=== PATIENT | female | born 1935 | race Caucasian/White ===

== ENCOUNTER 2017-04-11 22:03 | Inpatient (IN) | payer OTHER ==
[~2017-04-11] VITALS: Ht 149.9 cm; Wt 92.9 kg
--- NOTE | ~2017-04-11 | S ---
[facility] [place] [address] SURGICAL PATH RPT PROCEDURE Name: JESS LOYD Room #: 315-P DIS IN M.R.#: [id number] Admission: 04/11/17 Date of : 37 Discharge: 04/17/17 Report #: [id number] Path Case #: [id number] PATHOLOGY REPORT COLLECTION DATE: 04/16/2017 RECEIVED DATE: 04/16/2017 SUBMITTING PHYS: Dr. Nasreen Aguillon OTHER PHYS: Dr. Mitch Carson SPECIMEN(S) RECEIVED: A.Random bx of ascending colon B.Polyp at proximal transverse C.Colitis at distal transverse/distal transverse at spleenic flexure D.Bx at proximal sigmoid E.Bx at middle sigmoid * * * * * * * * * * * * FINAL DIAGNOSIS: A. Large intestine mucosa, random biopsy of ascending colon, endoscopic biopsy: - Melanosis coli. - Negative for active colitis, ischemia, dysplasia or malignancy. B. Polyp, at proximal transverse, endoscopic biopsy: - Tubular adenoma. - Negative for high grade dysplasia. C. Large intestine mucosa, colitis at distal transverse/distal transverse at spleenic flexure, endoscopic biopsy: - Mild active colitis, see comment. - Negative for ischemia, dysplasia or malignancy. D. Large intestine mucosa, at proximal sigmoid, endoscopic biopsy: - Mild active colitis, see comment. - Negative for ischemia, dysplasia or malignancy. E. Large intestine mucosa, at middle sigmoid, endoscopic biopsy: - Mild active colitis, see comment. - Negative for ischemia, dysplasia or malignancy. COMMENT: C, D and E: Sections of colon biopsy tissues show crypts at regular intervals; however associated with a mild increase in lamina propria cellularity, an occasional crypt abscess as well as a rare focus of crytptis. There are no granulomas, viral inclusions, parasites or crypt architectural abnormalities. The collagen layer underneath the epithelium is not thickened. There is no increase in intraepithelial lymphocytes as well. There is no evidence of dysplasia. Findings may be suggestive of active colitis due to a self-limited [facility] [address] [place] [address] SURGICAL PATH RPT PROCEDURE Name: JESS LOYD Room #: 315-P DIS IN M.R.#: [id number] Admission: 04/11/17 Date of : 37 Discharge: 04/17/17 Report #: [id number] Path Case #: [id number] episode of colitis, infectious- type colitis, early inflammatory bowel disease, medication induced colitis or diverticulitis. Please correlate clinically. (IUV; 04/18/17) PATHOLOGIST: Yuli Sparrow M.D. REPORT ELECTRONICALLY SIGNED BY: Yuli Sparrow M.D. DATE/TIME: 04/18/2017 15:48 * * * * * * * * * * * * GROSS PATHOLOGY: A. Received in formalin labeled "Jess Loyd, random BX of ascending colon," are 3 segments of mera soft tissue measuring 1.3 x 0.2 x 0.2 cm in aggregate dimensions and ranging from 0.3 to 0.7 cm in maximum dimension. The specimen is submitted entirely in cassette A1. B. Received in formalin labeled "Jess Loyd, polyp at proximal transverse," are 2 segments of mera soft tissue measuring 0.5 x 0.2 x 0.2 cm in aggregate dimensions and ranging from 0.2 to 0.3 cm in maximum dimension. The specimen is submitted entirely in cassette B1. C. Received in formalin labeled "Jess Loyd, colitis at distal transverse/distal transverse at splenic flexure," are 6 segments of mera soft tissue measuring 3.2 x 0.2 x 0.2 cm in aggregate dimensions and ranging from 0.3 to 0.8 cm in maximum dimension. The specimen is submitted entirely in cassette C1. D. Received in formalin labeled "Jess Loyd, proximal sigmoid," are 4 segments of mera soft tissue measuring 1.7 x 0.2 x 0.2 cm in aggregate dimensions and ranging from 0.2 to 0.7 cm in maximum dimension. The specimen is submitted entirely in cassette D1. E. Received in formalin labeled "Jess Loyd, BX at middle sigmoid," are 3 segments of mera soft tissue measuring 1.2 x 0.2 x 0.2 cm in aggregate dimensions and ranging from 0.2 to 0.5 cm in maximum dimension. The specimen is submitted entirely in cassette E1. (NICOLE; 04/17/2017) CLINICAL HISTORY: Possible ischemic colitis INITIAL CPT CODE(S): A; 50081 B; 55716 C; 95673 D; [address] [address] SURGICAL PATH RPT PROCEDURE Name: JESS LOYD Room #: 315-P DIS IN M.R.#: [id number] Admission: 04/11/17 Date of : 37 Discharge: 04/17/17 Report #: [id number] Path Case #: [id number]; [id number] Professional services performed by [facility] at [facility] [address] [place] [address] Technical services performed by [facility] at [address] [place] [address], [facility] [address] [address]. [facility] [address] [place] [address] PHONE: [phone] DIRECTOR: Mukesh Gerber M.D. * * * END OF REPORT * * *
--- NOTE | ~2017-04-11 | HC ---
[facility] [place] [address] CONSULTATION Name: SETH LOYD Room #: 315-P ADM IN M.R.#: [id number] Admission: 04/11/17 Attend Phys: Thom Carson MD Discharge: Date of : 36 Report #: [id number] THIS REPORT FOR: //name// CC: Thom Clements DATE OF SERVICE: 04/12/2017 CONSULTATION: Infectious diseases. HISTORY OF PRESENT ILLNESS: The patient is an 81-year-old white female admitted to [facility] on 04/11/2017 with complaints of 3 hours of severe abdominal pain. This is associated with nausea without vomiting and an episode of diarrhea. The patient had severe pain, which apparently dropped to her knee. She presented to the hospital. She is continued to have about 4-[address] scan suggested an extensive colitis of the distal colon. Infectious disease consultation was requested to assist with the evaluation and management. PAST MEDICAL HISTORY: Includes hypertension, hypothyroidism, anxiety, depression, reflux. The patient has a history of brain tumor. PAST SURGICAL HISTORY: Includes section. The patient has not had any recent antibiotic therapy. She notes an allergy to CIPRO, which is described as anaphylaxis. MEDICATION RECONCILIATION: Include atorvastatin 40 mg daily, hydrochlorothiazide 25 mg daily, multivitamins one daily, venlafaxine 75 mg daily, Flagyl 100 mL IV b.i.d., L-thyroxine 100 mcg daily, pantoprazole 20 mg daily, Zosyn 3.375 grams IV every 6 hours, Tylenol p.r.n., MiraLax p.r.n., morphine p.r.n., and supplemental potassium. FAMILY HISTORY: Noncontributory. SOCIAL HISTORY: The patient is . She lives with her son. She has 3 living children, had a total of 5 children. She has not been around anyone else with a similar illness. She denies use of tobacco, alcohol or drugs. REVIEW OF SYSTEMS: GENERAL: The patient is not complaining of fevers, chills, sweats. She has weakness, malaise and abdominal pain. The patient denies headache, sinus congestion, sore throat, trouble swallowing. The patient denies cough, chest pain, shortness of breath. The patient complains of diffuse abdominal pain, nausea without vomiting, diarrhea with watery stools, no blood in the stools, no melena nor hematochezia. The patient denies urinary complaints. [place] [address] CONSULTATION Name: SETH LOYD Room #: 315-P [facility] IN ..#: [id number] Admission: 04/11/17 Attend Phys: Thom Carson MD Discharge: Date of : 36 Report #: [id number] PHYSICAL EXAMINATION: GENERAL: The patient appears her stated age, alert, oriented, comfortable, not in any distress. VITAL SIGNS: Show the patient has not had any fever during this hospitalization. Blood pressure is 130/83. NEUROLOGIC: Alert, oriented and appropriate. SKIN: Shows no rash, lesion or exanthem. ENT: Negative. HEART: Sounds normal. LUNGS: Clear. ABDOMEN:Belly is obese, but totally benign.There is minimal tenderness with deep palpitation. No mass. No organomegaly. Bowel sounds are present. EXTREMITIES: Unremarkable. LABORATORY DATA: White count initially was 17.4, now down to 15; hemoglobin has gone down from 14.8 to 12.7 with hydration; hematocrit 37%; platelet are 265,000. Electrolytes, BUN and creatinine and glucose are normal. Liver function tests are normal. Magnesium is 2.0. Lactate was initially 3, now down to 1.7. CT scan shows extensive colitis from hepatic flexure to the sigmoid. Stool has been obtained and sent to the laboratory for C. difficile DNA as well as bacterial toxins and pathogens, results are pending. IMPRESSION: Acute onset colitis with sepsis, improving. The patient's septic parameters are clearly improving. Her diarrhea is better and her pain is 80% gone. This could represent non-antibiotic associated C. difficile colitis with a severe sudden onset of pain. Bacterial pathogen seemed to be less likely. Food poisoning or a virus could present like this. The patient describes no suspicious oral intake and no one else that she has had contact with similar illness. Ischemic colitis might be a possibility. At this time, I would like to discontinue the Zosyn, discontinue the Flagyl. We should have lab results from the stool studies by tomorrow. I want to do a followup CBC and BMP. If the patient does not improve, we may want to consider sigmoidoscopy on the first of the week. I appreciate the opportunity of input in the care of this pleasant patient. I will be happy to follow with the patient with you through the weekend until Dr. Licona returns on Friday. Thank you again for this consultation. <ELECTRONICALLY SIGNED> By: Isael King MD 04/13/172001 0858 1108 Isael King MD /nt
[~2017-04-11 22:03] MED LIST: ACTONEL30 MG PO; ALLER-EASE180 MG PO; ANALGESIC325 MG PO; BACTRIM DS TAB1 EACH PO; CALCIUM 500+D1 EAC2 PO; CENTRUM SILVER1 EAC2 PO; COLACE100 MG PO; EFFEXOR XR75 MG PO; ENALAPRIL MALEA20 MG PO; EXCEDRIN CAPLE1 EACH; FISH OIL 1,001000 M2 PO; FISHOIL; FLAGYL500 MG PO; FOSAMAX 70 MG T70 MG PO; HYDROCHLOROTHIA25 M1 PO; HYDROCODONE-APA1 TA1 PO; LIPITOR40 MG PO; MAXALT; MECLIZINE HCL12.5 MG PO; MOBIC7.5 MG PO; OMEPRAZOLE20 MG PO; RESTORIL30 MG PO; SERTRALINE HCL100 MG PO; SYNTHROID88 MCG PO; TOPROL XL200 MG PO; TUMS PO; ULTRAM 50MG TAB50 MG PO; ZOFRAN 4 MG ORAL4 M1 DIS; ZOFRAN4 MG PO
[2017-04-11 22:06] VITALS: BP 138/74
[2017-04-11 22:41] LABS: BASOPHILS 0.5 % (0.0-2.0); HEMATOCRIT 43.7 % (37.0-47.0); HEMOGLOBIN 14.8 gm/dL (12.0-15.0); MANUAL DIFF NO; MCH 32.1 pg (26.0-34.0); MCHC 33.9 g/dL (28.0-37.0); MCV 94.6 fL (80.0-100.0); MONOCYTES 4.8 % (1.0-8.0); PLATELET COUNT 288 thou/uL (150-400); POLYS 80.7 % (36.0-66.0); RBC 4.62 mil/uL (4.20-5.00); RDW 12.9 % (10.5-14.5); WBC 17.4 thou/uL (4.0-11.0)
[2017-04-11 22:52] LABS: ANION GAP 9 mmol/L (7-16); BUN 21 mg/dL (7-18); CALCIUM 10.5 mg/dL (8.5-10.1); CHLORIDE 100 mmol/L (98-107); CO2 26 mmol/L (21-32); CREATININE 1.3 mg/dL (0.6-1.0); GLUCOSE 151 mg/dL (74-106); POTASSIUM 3.3 mmol/L (3.5-5.1); SODIUM 135 mmol/L (136-145)
[2017-04-11 22:57] LABS: ALBUMIN 3.3 g/dL (3.4-5.0); ALKALINE PHOSPHATASE 61 U/L (46-116); DIRECT BILIRUBIN < 0.1 mg/dL (<0.1-0.3); SGOT 28 U/L (15-37); SGPT 32 U/L (30-65); TOTAL BILIRUBIN 0.2 mg/dL (<0.1-1.0); TOTAL PROTEIN 7.3 g/dL (6.4-8.2)
[2017-04-12 00:10] VITALS: BP 135/71
[2017-04-12 01:30] VITALS: BP 129/67
[2017-04-12 05:00] VITALS: BP 138/86
[2017-04-12 06:51] LABS: HEMATOCRIT 37.2 % (37.0-47.0); MCH 32.2 pg (26.0-34.0); MCHC 34.1 g/dL (28.0-37.0); MCV 94.2 fL (80.0-100.0); RBC 3.95 mil/uL (4.20-5.00); RDW 12.8 % (10.5-14.5); WBC 15.2 thou/uL (4.0-11.0)
[2017-04-12 06:53] LABS: HEMOGLOBIN 12.7 gm/dL (12.0-15.0)
[2017-04-12 07:00] LABS: CALCIUM 9.3 mg/dL (8.5-10.1); CREATININE 1.3 mg/dL (0.6-1.0); POTASSIUM 3.9 mmol/L (3.5-5.1)
[2017-04-12 09:20] VITALS: BP 133/62
[2017-04-12 15:35] VITALS: BP 130/63
[2017-04-12 20:50] VITALS: BP 143/73
[2017-04-13 00:05] LABS: GLYCOHEMOGLOBIN (HGB A1C) 5.6 % (4.8-5.6)
[2017-04-13 04:40] VITALS: BP 117/61
[2017-04-13 06:00] LABS: ABSOLUTE NEUTROPHILS 7.2 thou/uL (1.4-8.2); BASOPHILS 0.8 % (0.0-2.0); EOSINOPHILS 1.6 % (0.0-3.0); HEMATOCRIT 33.5 % (37.0-47.0); HEMOGLOBIN 11.7 gm/dL (12.0-15.0); LYMPHOCYTES 25.2 % (24.0-44.0); MANUAL DIFF NO; MCH 32.6 pg (26.0-34.0); MCHC 34.9 g/dL (28.0-37.0); MCV 93.5 fL (80.0-100.0); PLATELET COUNT 223 thou/uL (150-400); POLYS 65.4 % (36.0-66.0); RBC 3.59 mil/uL (4.20-5.00); RDW 12.9 % (10.5-14.5)
[2017-04-13 06:08] LABS: CALCIUM 8.6 mg/dL (8.5-10.1); CREATININE 0.9 mg/dL (0.6-1.0); POTASSIUM 3.5 mmol/L (3.5-5.1)
[2017-04-13 07:04] VITALS: BP 100/60
[2017-04-13 16:00] VITALS: BP 122/69
[2017-04-13 20:00] VITALS: BP 136/62
[2017-04-14 03:03] LABS: ABSOLUTE NEUTROPHILS 6.5 thou/uL (1.4-8.2); BASOPHILS 0.7 % (0.0-2.0); EOSINOPHILS 1.1 % (0.0-3.0); HEMATOCRIT 30.4 % (37.0-47.0); HEMOGLOBIN 10.6 gm/dL (12.0-15.0); LYMPHOCYTES 18.2 % (24.0-44.0); MCH 32.8 pg (26.0-34.0); MCV 93.7 fL (80.0-100.0); MONOCYTES 8.1 % (1.0-8.0); PLATELET COUNT 182 thou/uL (150-400); POLYS 71.9 % (36.0-66.0); RBC 3.25 mil/uL (4.20-5.00); RDW 12.9 % (10.5-14.5)
[2017-04-14 03:05] LABS: MANUAL DIFF NO
[2017-04-14 03:10] LABS: CREATININE 0.9 mg/dL (0.6-1.0); MAGNESIUM 1.4 mg/dL (1.8-2.4); POTASSIUM 3.2 mmol/L (3.5-5.1)
[2017-04-14 04:00] VITALS: BP 126/60
[2017-04-14 09:36] VITALS: BP 151/80
[2017-04-14 15:32] LABS: URINE BILIRUBIN NEGATIVE (Negative); URINE BLOOD NEGATIVE (Negative); URINE COLOR YELLOW; URINE GLUCOSE-RANDOM* NEGATIVE (Negative); URINE KETONES NEGATIVE (Negative); URINE NITRITE NEGATIVE (Negative); URINE PROTEIN (DIPSTICK) NEGATIVE (Negative); URINE UROBILINOGEN 0.2 E.U./dl (0.2-1.0)
[2017-04-14 18:33] VITALS: BP 135/66
[2017-04-14 19:48] LABS: MAGNESIUM 1.5 mg/dL (1.8-2.4); POTASSIUM 3.1 mmol/L (3.5-5.1)
[2017-04-14 20:15] VITALS: BP 156/73
[2017-04-15 01:12] LABS: ABSOLUTE NEUTROPHILS 6.2 thou/uL (1.4-8.2); BASOPHILS 0.6 % (0.0-2.0); EOSINOPHILS 2.2 % (0.0-3.0); HEMATOCRIT 32.4 % (37.0-47.0); HEMOGLOBIN 11.2 gm/dL (12.0-15.0); LYMPHOCYTES 19.5 % (24.0-44.0); MCH 32.6 pg (26.0-34.0); MCHC 34.4 g/dL (28.0-37.0); MCV 94.9 fL (80.0-100.0); MONOCYTES 7.8 % (1.0-8.0); PLATELET COUNT 193 thou/uL (150-400); POLYS 69.9 % (36.0-66.0); RBC 3.42 mil/uL (4.20-5.00); RDW 12.9 % (10.5-14.5); WBC 8.9 thou/uL (4.0-11.0)
[2017-04-15 01:14] LABS: MANUAL DIFF NO
[2017-04-15 01:17] LABS: CALCIUM 8.3 mg/dL (8.5-10.1); CREATININE 0.8 mg/dL (0.6-1.0); MAGNESIUM 1.4 mg/dL (1.8-2.4); POTASSIUM 3.7 mmol/L (3.5-5.1)
[2017-04-15 04:26] VITALS: BP 133/71
[2017-04-15 08:29] VITALS: BP 157/96
[2017-04-15 15:49] VITALS: BP 114/66
[2017-04-15 20:00] VITALS: BP 145/77
[2017-04-16 04:00] VITALS: BP 141/73
[2017-04-16 06:17] LABS: HEMATOCRIT 29.3 % (37.0-47.0); HEMOGLOBIN 10.3 gm/dL (12.0-15.0); MCH 32.7 pg (26.0-34.0); MCV 93.3 fL (80.0-100.0); RBC 3.14 mil/uL (4.20-5.00); RDW 12.9 % (10.5-14.5); WBC 7.4 thou/uL (4.0-11.0)
[2017-04-16 06:28] LABS: CALCIUM 7.8 mg/dL (8.5-10.1); CREATININE 0.7 mg/dL (0.6-1.0); POTASSIUM 3.3 mmol/L (3.5-5.1)
[2017-04-16 08:00] VITALS: BP 109/69
[2017-04-16 11:56] VITALS: BP 156/87
[2017-04-16 15:46] VITALS: BP 150/81
[2017-04-16 20:30] VITALS: BP 130/75
[2017-04-17 04:30] VITALS: BP 144/82
[2017-04-17 07:01] LABS: CALCIUM 7.7 mg/dL (8.5-10.1); CREATININE 0.8 mg/dL (0.6-1.0); POTASSIUM 3.8 mmol/L (3.5-5.1)
[2017-04-17 07:53] VITALS: BP 133/71
[2017-04-17] MEDS ORDERED: AMOXICILLIN 50500 M1 PO (10:06)
[2017-04-17 11:34] VITALS: BP 133/71
== END 2017-04-17 14:00 | disposition home health service (06) | DRG 871 ==
LOC: ER 22:03 → EROBS 23:56 → 3N 23:56
PROVIDERS: Emergency Medicine; Family Medicine; Hospitalist; Internal Medicine Geriatric Medicine; Internal Medicine Infectious Disease; Nurse Practitioner Adult Health; Nurse Practitioner Family
PROC: 0DBK8ZX Excision of Ascending Colon, Via Natural or Artificial Opening Endoscopic, Diagnostic (ICD-10-PCS; principal; 2017-04-16)
PROC: 0DBL8ZX Excision of Transverse Colon, Via Natural or Artificial Opening Endoscopic, Diagnostic (ICD-10-PCS; principal; 2017-04-16)
PROC: 0DBN8ZX Excision of Sigmoid Colon, Via Natural or Artificial Opening Endoscopic, Diagnostic (ICD-10-PCS; principal; 2017-04-16)
DX: A41.9 Sepsis, unspecified organism (principal); N17.0 Acute kidney failure with tubular necrosis; K52.9 Noninfective gastroenteritis and colitis, unspecified; E03.9 Hypothyroidism, unspecified; G43.909 Migraine, unspecified, not intractable, without status migrainosus; E87.6 Hypokalemia; I12.9 Hypertensive chronic kidney disease with stage 1 through stage 4 chronic kidney disease, or unspecified chronic kidney disease; N18.9 Chronic kidney disease, unspecified; M81.0 Age-related osteoporosis without current pathological fracture; K21.9 Gastro-esophageal reflux disease without esophagitis; F41.9 Anxiety disorder, unspecified; F32.9 Major depressive disorder, single episode, unspecified; Z79.82 Long term (current) use of aspirin; Z88.1 Allergy status to other antibiotic agents; Z79.899 Other long term (current) drug therapy; Z90.710 Acquired absence of both cervix and uterus
CPT/HCPCS: 10096; 62110; 62900; 70005

== ENCOUNTER 2017-04-17 17:22 | Inpatient (IN) | payer OTHER ==
[~2017-04-17] VITALS: Ht 149.9 cm; Wt 97.5 kg
--- NOTE | ~2017-04-17 | EKG ---
[address] [address] ELECTROCARDIOGRAM REPORT Name: SETH LOYD Room #: 450- ADM IN M.R.#: [id number] Admission: 04/17/17 Attend Phys: Mars Sifuentes MD Discharge: Date of : 36 Report #: [id number] THIS REPORT FOR: //name// [facility] ED Test Date: 2017-04-17 Test Time: 17:34:22 Pat Name: SETH LOYD Department: Room: [facility] Gender: F Spiritual Counselor: : 1935 Requested By: Lizbeth Mendenhall Order Number: [id number] MD: Gabino Smalls Measurements Intervals Leroy Rate: 71 P: 18 IN: 169 QRS: -2 QRSD: 99 T: 45 QT: 416 QTc: 453 Interpretive Statements Sinus rhythm Borderline low voltage, extremity leads Compared to ECG 12/31/2015 22:52:56 Ventricular premature complex(es) no longer present Inferior Q waves no longer present Q waves no longer present Electronically Signed On 04-18-2017 13:53:52 CDT by Gabino Smalls [email or web address] <ELECTRONICALLY SIGNED> By: Gabino Smalls MD 04/18/17 1353 1734 1734 Gabino Smalls MD /EPI
--- NOTE | ~2017-04-17 | 2DMMODE ---
[place] [address] [facility] [place] [address] 2 D/M-MODE ECHOCARDIOGRAM Name: RACHSETH JOSÉ MIGUEL Room #: 450-P [facility] IN M.R.#: [id number] Admission: 04/17/17 Attend Phys: Mars Sifuentes, Discharge: Date of : 37 Date of Service: 04/18/17 0946 Report #: [id number] THIS REPORT FOR: //name// APPROVED REPORT Study performed: 04/18/2017 08:25:46 EXAM: Comprehensive 2D, Doppler, and color-flow Echocardiogram Patient Location: Echo lab Room #: [facility] Other Information Study Quality: Adequate Indications Congestive Heart Failure Dyspnea Hypertension/HDD 2D Dimensions RVDd: 30.20 mm LVEF(%): 57.72 (>50%) IVSd: 13.83 (7-11mm) LVOT Diam: 17.64 (18-24mm) LVDd: 45.70 mm PWd: 13.55 (7-11mm) Ascending Ao: 28.51 (22-36mm) LVDs: 31.86 (25-40mm) Aortic Root: 29.52 mm IVC: 15.00 mm Roberts's LVEF: 57.72 % Volumes Left Atrial Volume (Systole) Single Plane 4CH: 58.49 mL Single Plane 2CH: 78.98 mL LA ESV Index: 38.00 mL/m2 Aortic Valve AoV Peak Suman.: 3.08 m/s AO Peak Gr.: 37.89 mmHg LVOT Max P.06 mmHg AO Mean Gr.: 17.79 mmHg LVOT Mean P.58 mmHg AO V2 Mean: 1.93 m/s LVOT Max V: 0.92 m/s AO V2 VTI: 69.71 cm LVOT Mean V: 0.60 m/s ENRIKE (VTI): 0.88 cm2 LVOT V1 VTI: 25.14 cm ENRIKE Vmax: 0.73 cm2 SV (LVOT): 61.44 mL Mitral Valve [facility] [address] [place] [address] 2 D/M-MODE ECHOCARDIOGRAM Name: SETH LOYD Room #: 450-[facility] IN .R.#: [id number] Admission: 04/17/17 Attend Phys: Mars Sifuentes, Discharge: Date of : 37 Date of Service: 04/18/17 0946 Report #: [id number] E/A Ratio: 0.7 MV Decel. Time: 196.37 ms MV E Max Suman.: 0.95 m/s MV A Suman.: 1.36 m/s MV PHT: 56.95 ms IVRT: 93.43 ms Pulmonary Valve PV Peak Suman.: 0.93 m/s PV Peak Gr.: 3.44 mmHg Pulmonary Vein P Vein S: 0.70 m/s P Vein A: 0.26 m/s P Vein D: 0.43 m/s P Vein A Dur.: 79.6 msec P Vein S/D Ratio: 1.63 Tricuspid Valve TR Peak Suman.: 3.59 m/s RAP Estimate: 5.00 mmHg TR Peak Gr.: 51.59 mmHg Left Ventricle The left ventricle is normal size. There is normal LV segmental wall motion. Mild to moderate concentric left ventricular hypertrophy. The left ventricular systolic function is normal. The left ventricular ejection fraction is within the normal range. LVEF is 55-60%. Mild diastolic dysfunction is present (impaired relaxation pattern). Right Ventricle The right ventricle is normal size. The right ventricular systolic function is normal. Atria Left atrium is mildly dilated. The right atrium size is normal. Aortic Valve Mild aortic valve sclerosis. Mild to moderate aortic regurgitation. Mild to moderate aortic stenosis with a max velocity of 3.08 m/s. Aortic valve max pressure gradient is 38 mmHg and a mean pressure gradient of 18 mmHg. Planimetry of aortic valve area is 1.2 cm2. Mitral Valve Moderate mitral annular calcification. Mild mitral regurgitation. No evidence of mitral valve stenosis. [facility] [address] [place] [address] 2 D/M-MODE ECHOCARDIOGRAM Name: SETH LOYD Room #: 450-P [facility] IN M.R.#: [id number] Admission: 04/17/17 Attend Phys: Mars Sifuentes, Discharge: Date of : 37 Date of Service: 04/18/17 0946 Report #: [id number] Tricuspid Valve The tricuspid valve is normal in structure. There is trace tricuspid regurgitation. The right atrial pressure is estimated at 5 mmHg and PAP estimated at 56 mmHg. Pulmonic Valve Pulmonic valve is not well visualized. Trace pulmonic regurgitation. Great Vessels The aortic root is normal in size. IVC is normal in size and collapses >50% with inspiration. Pericardium There is no pericardial effusion. <Conclusion> The left ventricular systolic function is normal. Mild LVH LVEF is 55-60%. Mild diastolic dysfunction is present (impaired relaxation pattern). Left atrium is mildly dilated. Mild to moderate aortic stenosis with a max velocity of 3.1 m/s. Aortic valve max pressure gradient is 38 mmHg and a mean pressure gradient of 18 mmHg. Planimetry of aortic valve area is 1.2 cm2. Mild to moderate aortic regurgitation. Moderate mitral annular calcification. Mild mitral regurgitation. Pulmonary artery pressure of 55mmHg There is no pericardial effusion. <ELECTRONICALLY SIGNED> By: Kolby García MD, [facility] 04/18/17945 5 5 Kolby García MD, FACC /INF
[~2017-04-17 17:22] MED LIST changes: +AMOXICILLIN 50500 M1 PO
[2017-04-17 17:23] VITALS: BP 150/84
[2017-04-17 17:48] LABS: ABSOLUTE NEUTROPHILS 4.3 thou/uL (1.4-8.2); HEMATOCRIT 31.6 % (37.0-47.0); HEMOGLOBIN 10.8 gm/dL (12.0-15.0); LYMPHOCYTES 20.6 % (24.0-44.0); MCH 32.4 pg (26.0-34.0); MCHC 34.3 g/dL (28.0-37.0); MCV 94.6 fL (80.0-100.0); MONOCYTES 11.7 % (1.0-8.0); PLATELET COUNT 233 thou/uL (150-400); POLYS 62.7 % (36.0-66.0); RBC 3.34 mil/uL (4.20-5.00); RDW 13.5 % (10.5-14.5); WBC 6.8 thou/uL (4.0-11.0)
[2017-04-17 17:51] LABS: MANUAL DIFF NO
[2017-04-17 17:59] LABS: CALCIUM 8.3 mg/dL (8.5-10.1); CREATININE 0.7 mg/dL (0.6-1.0); POTASSIUM 4.1 mmol/L (3.5-5.1)
[2017-04-17 19:55] VITALS: BP 150/48
[2017-04-17 21:10] VITALS: BP 154/89
[2017-04-17 23:50] VITALS: BP 143/67
[2017-04-18 04:30] VITALS: BP 140/70
[2017-04-18 06:15] LABS: HEMATOCRIT 31.1 % (37.0-47.0); HEMOGLOBIN 10.8 gm/dL (12.0-15.0); MCH 32.4 pg (26.0-34.0); MCHC 34.6 g/dL (28.0-37.0); MCV 93.5 fL (80.0-100.0); RBC 3.33 mil/uL (4.20-5.00); RDW 13.7 % (10.5-14.5)
[2017-04-18 06:26] LABS: CALCIUM 8.5 mg/dL (8.5-10.1); CREATININE 0.7 mg/dL (0.6-1.0); MAGNESIUM 1.7 mg/dL (1.8-2.4); POTASSIUM 3.8 mmol/L (3.5-5.1)
[2017-04-18 07:45] VITALS: BP 134/61
[2017-04-18 11:17] VITALS: BP 136/70
[2017-04-18 13:46] VITALS: BP 136/70
== END 2017-04-18 14:32 | disposition home or self-care (01) | DRG 641 ==
LOC: ER 17:22 → 4W 18:34 → EROBS 18:34 → 4W 20:00
PROVIDERS: Emergency Medicine; Nurse Practitioner Acute Care
DX: E87.70 Fluid overload, unspecified (principal); E03.9 Hypothyroidism, unspecified; I10 Essential (primary) hypertension; G43.909 Migraine, unspecified, not intractable, without status migrainosus; M81.0 Age-related osteoporosis without current pathological fracture; K21.9 Gastro-esophageal reflux disease without esophagitis; Z88.1 Allergy status to other antibiotic agents; Z90.710 Acquired absence of both cervix and uterus; Z79.82 Long term (current) use of aspirin; Z79.899 Other long term (current) drug therapy
CPT/HCPCS: 10045

== ENCOUNTER 2017-08-13 16:26 | Emergency (ER) | payer OTHER ==
[~2017-08-13] VITALS: Ht 149.9 cm; Wt 86.6 kg
[2017-08-13] MEDS ORDERED: NORCO 5-325 TA1 EACH PO (16:42)
== END 2017-08-13 17:04 | disposition home or self-care (01) ==
LOC: ER 16:26
DX: G89.29 Other chronic pain (principal); M54.5 Low back pain; I10 Essential (primary) hypertension; G43.909 Migraine, unspecified, not intractable, without status migrainosus; E03.9 Hypothyroidism, unspecified; K21.9 Gastro-esophageal reflux disease without esophagitis; M81.0 Age-related osteoporosis without current pathological fracture; Z88.1 Allergy status to other antibiotic agents; Z90.89 Acquired absence of other organs

== ENCOUNTER 2017-08-30 23:31 | Emergency (ER) | payer OTHER ==
[~2017-08-30] VITALS: Ht 149.9 cm; Wt 87.1 kg
[~2017-08-30 23:31] MED LIST changes: +NORCO 5-325 TA1 EACH PO
[2017-08-31] MEDS ORDERED: MYSOLINE50 MG PO (00:36)
== END 2017-08-31 02:45 | disposition home or self-care (01) ==
LOC: ER 23:31
DX: S09.8XXA Other specified injuries of head, initial encounter (principal); E03.9 Hypothyroidism, unspecified; I10 Essential (primary) hypertension; K21.9 Gastro-esophageal reflux disease without esophagitis; Z90.89 Acquired absence of other organs; Z90.710 Acquired absence of both cervix and uterus; Z85.841 Personal history of malignant neoplasm of brain; Z88.1 Allergy status to other antibiotic agents; W01.0XXA Fall on same level from slipping, tripping and stumbling without subsequent striking against object, initial encounter; Y93.89 Activity, other specified; Y92.89 Other specified places as the place of occurrence of the external cause; Y99.8 Other external cause status

== ENCOUNTER 2018-08-16 18:21 | Emergency (ER) | payer OTHER ==
[~2018-08-16] VITALS: Ht 149.9 cm; Wt 87.1 kg
--- NOTE | ~2018-08-16 | EKG ---
[place] [address] [facility] [place] [address] ELECTROCARDIOGRAM REPORT Name: RACHSETH JOSÉ MIGUEL Room #: [facility]#: [id number] Admission: 08/16/18 Attend Phys: Discharge: 08/16/18 Date of : 37 Report #: [id number] THIS REPORT FOR: //name// [facility] ED Test Date: 2018-08-16 Test Time: 18:42:40 Pat Name: SETH LOYD Department: Room: Gender: F Nuclear Plant Construction Worker: OLGA : 1935 Requested By: Yoselin Ogden Order Number: [id number] MD: Kolby García Measurements Intervals [place] Rate: 102 P: 70 OR: 188 QRS: 260 QRSD: 91 T: 33 QT: 374 QTc: 488 Interpretive Statements Sinus tachycardia Possible Inferior infarct, old Compared to ECG 06/14/2018 11:52:32 Nonspecific change in the ST and T-wave segments Electronically Signed On 08-17-2018 9:24:29 CDT by Kolby García [email or web address] <ELECTRONICALLY SIGNED> By: Kolby García MD, [facility] 08/17/18 0924 D: [id number] Kolby García MD, FACC /EPI
[~2018-08-16 18:21] MED LIST changes: +AUGMENTIN 875-1 EACH PO; +DEEP SEA NASAL44 M1 NASAL; -EXCEDRIN CAPLE1 EACH; +EXCEDRIN CAPLE1 EACH PO; +HYDROCHLOROTHIA25 M2 PO; +KLOR-CON 1010 MEQ PO; +LASIX 20 MG TAB20 MG PO; +MYSOLINE50 MG PO; +NORVASC10 MG PO; +PREDNISONE 20 M20 MG PO; +VITAMIN B-12500 MCG PO; +ZOFRAN ODT4 MG PO
[2018-08-16 19:30] LABS: ABSOLUTE NEUTROPHILS 4.2 thou/uL (1.4-8.2); BASOPHILS 0.9 % (0.0-2.0); EOSINOPHILS 1.1 % (0.0-3.0); HEMATOCRIT 41.9 % (37.0-47.0); HEMOGLOBIN 14.1 gm/dL (12.0-15.0); LYMPHOCYTES 30.8 % (24.0-44.0); MCH 31.6 pg (26.0-34.0); MCHC 33.6 g/dL (28.0-37.0); MONOCYTES 6.7 % (1.0-8.0); PLATELET COUNT 296 thou/uL (150-400); POLYS 60.5 % (36.0-66.0); RBC 4.45 mil/uL (4.20-5.00); RDW 13.6 % (10.5-14.5)
[2018-08-16 19:41] LABS: ANION GAP 8 mmol/L (7-16); BUN 18 mg/dL (7-18); CALCIUM 10.3 mg/dL (8.5-10.1); CHLORIDE 103 mmol/L (98-107); CO2 29 mmol/L (21-32); CREATININE 1.1 mg/dL (0.6-1.0); GLUCOSE 143 mg/dL (74-106); POTASSIUM 3.5 mmol/L (3.5-5.1); SODIUM 140 mmol/L (136-145)
[2018-08-16 19:50] LABS: ALBUMIN 3.5 g/dL (3.4-5.0); SGOT 24 U/L (15-37); SGPT 27 U/L (30-65); TOTAL BILIRUBIN 0.1 mg/dL (<0.1-1.0); TOTAL PROTEIN 7.6 g/dL (6.4-8.2); TROPONIN-I <0.06 ng/mL (<0.06)
[2018-08-16 21:24] LABS: URINE BILIRUBIN NEGATIVE (Negative); URINE BLOOD NEGATIVE (Negative); URINE CLARITY CLEAR; URINE COLOR YELLOW; URINE GLUCOSE-RANDOM* NEGATIVE (Negative); URINE KETONES NEGATIVE (Negative); URINE LEUKOCYTES-REFLEX NEGATIVE (Negative); URINE NITRITE-REFLEX NEGATIVE (Negative); URINE PROTEIN (DIPSTICK) NEGATIVE (Negative); URINE SPECIFIC GRAVITY 1.025 (1.005-1.035); URINE UROBILINOGEN 0.2 E.U./dl (0.2-1.0)
[2018-08-16] MEDS ORDERED: ONDANSETRON HCL4 M2 PO (21:36)
== END 2018-08-16 22:20 | disposition home or self-care (01) ==
LOC: ER 18:21
PROVIDERS: Physician Assistant
DX: E86.9 Volume depletion, unspecified (principal); F41.9 Anxiety disorder, unspecified; R11.0 Nausea; E03.9 Hypothyroidism, unspecified; I10 Essential (primary) hypertension; M81.0 Age-related osteoporosis without current pathological fracture; K21.9 Gastro-esophageal reflux disease without esophagitis; Z88.1 Allergy status to other antibiotic agents

== ENCOUNTER 2019-02-25 08:28 | Inpatient (IN) | payer OTHER ==
[2019-02-25] VITALS (7 sets, daily range): BP systolic 142–189; BP diastolic 78–97
[~2019-02-25] VITALS: Ht 149.9 cm; Wt 83.9 kg
[~2019-02-25 08:28] MED LIST changes: +EFFEXOR XR150 MG PO; -EFFEXOR XR75 MG PO; +ONDANSETRON HCL4 M2 PO; +SYNTHROID100 MC1 PO; -SYNTHROID88 MCG PO
[2019-02-25 09:02] LABS: ABSOLUTE NEUTROPHILS 16.2 thou/uL (1.4-8.2); BASOPHILS 0.6 % (0.0-2.0); EOSINOPHILS 0.2 % (0.0-3.0); HEMATOCRIT 41.9 % (37.0-47.0); HEMOGLOBIN 14.1 gm/dL (12.0-15.0); LYMPHOCYTES 6.6 % (24.0-44.0); MCH 31.3 pg (26.0-34.0); MCHC 33.7 g/dL (28.0-37.0); MCV 92.8 fL (80.0-100.0); MONOCYTES 6.3 % (1.0-8.0); PLATELET COUNT 260 thou/uL (150-400); POLYS 86.3 % (36.0-66.0); RBC 4.51 mil/uL (4.20-5.00); RDW 13.4 % (10.5-14.5); WBC 18.7 thou/uL (4.0-11.0)
[2019-02-25 09:09] LABS: CALCIUM 10.1 mg/dL (8.5-10.1); POTASSIUM 3.4 mmol/L (3.5-5.1)
[2019-02-25 09:14] LABS: ALBUMIN 3.5 g/dL (3.4-5.0); TOTAL BILIRUBIN 0.2 mg/dL (<0.1-1.0); TOTAL PROTEIN 7.1 g/dL (6.4-8.2)
[2019-02-25 09:38] LABS: URINE BILIRUBIN NEGATIVE (Negative); URINE BLOOD NEGATIVE (Negative); URINE CLARITY CLEAR; URINE COLOR YELLOW; URINE GLUCOSE-RANDOM* NEGATIVE (Negative); URINE KETONES NEGATIVE (Negative); URINE LEUKOCYTES-REFLEX NEGATIVE (Negative); URINE NITRITE-REFLEX NEGATIVE (Negative); URINE PROTEIN (DIPSTICK) NEGATIVE (Negative); URINE SPECIFIC GRAVITY 1.025 (1.005-1.035); URINE UROBILINOGEN 0.2 E.U./dl (0.2-1.0)
--- NOTE | 2019-02-25 14:50 | NUR ---
PATIENT ADMITTED TO ROOM AT THIS TIME. SHE IS ALERT ORIENTED X4. DENIES COMPLAIN OF PAIN OR DISTRESS. STATES SHE HAS NOT HAD ANY MORE LOSS STOOLS IN THE LAST 12HRS. AMBULATES TO BATHROOM WITH MINIMAL ASSIST. WILL CONT WITH PLAN OF CARE.
--- NOTE | 2019-02-26 03:54 | NUR ---
PATIENT IS PROGRESSING IN HER CARE PLAN. VITAL SIGNS STABLE WITH PATIENT HAVING NO COMPLAINTS OF NAUSEA. PATIENT DID COMPLAIN OF PAIN DUE TO HEADACHE WHICH WAS SUCCESSFULLY TREATED THROUGH MEDICATION AND NON PHARMACOLOGICAL INTERVENTIONS. FULLY ORIENTED, PATIENT IS ABLE TO CALL FOR REQUESTS AND PARTICIPATE IN CARE PLAN. PATIENT COMPLETED BOWEL PREP EARLY IN SHIFT AND HAS HAD MANY BOWEL MOVEMENTS ON BEDSIDE COMMODE. SHE HAS BEEN ABLE TO AMBULATE TO BEDSIDE COMMODE FREQUENTLY WITH ASSISTANCE BUT APPEARS WEAK AND SHOULD BE CONSIDERED A HIGH FALL RISK. PATIENT HAS BEEN KEPT NPO FROM MIDNIGHT IN ANTICIPATION OF TODAYS COLONOSCOPY. CONTINUE PLAN OF CARE.
[2019-02-26 04:54] VITALS: BP 144/85
[2019-02-26 05:01] LABS: HEMATOCRIT 35.5 % (37.0-47.0); MCH 31.7 pg (26.0-34.0); MCV 93.2 fL (80.0-100.0); RBC 3.8 mil/uL (4.20-5.00); RDW 13.3 % (10.5-14.5); WBC 8.5 thou/uL (4.0-11.0)
[2019-02-26 05:03] LABS: HEMOGLOBIN 12.1 gm/dL (12.0-15.0)
[2019-02-26 05:27] LABS: CALCIUM 8.7 mg/dL (8.5-10.1); CREATININE 0.9 mg/dL (0.6-1.0)
[2019-02-26 05:30] LABS: POTASSIUM 2.9 mmol/L (3.5-5.1)
[2019-02-26 07:30] VITALS: BP 152/83
[2019-02-26] MEDS ORDERED: NORCO 7.5-3251 EACH PO (11:29)
[2019-02-26] MEDS ORDERED: LASIX 20 MG TAB20 MG PO (11:31)
--- NOTE | 2019-02-26 14:51 | NUR ---
ASSESSMENT: CM REVIEWED CHART AND MET WITH PATIENT AT THE BEDSIDE. PT WAS ADMITTED WITH COLITIS AND HAD COLONOSCOPY TODAY. PT REPORTS SHE LIVES AT HOME WITH HER SON FIDEL. PT REPORTS SHE HAS ABOUT 4 STEPS WITH A HANDRAIL TO ENTER HER HOME AND NO STEPS ONCE INSIDE. PT REPORTS SHE HAS HAD [facility] IN THE PAST BUT NOT CURRENTLY. PT REPORTS HAVING A CPAP AT HOME AND OXYGEN AT HOME FOR BEDTIME BUT UNSURE THE PROVIDER. PHYSICAL THERAPY SAW PATIENT AND SHE DID VERY WELL AND RECOMMENDING HOME WITH HH/OUTPATIENT. CM DISCUSSED WITH PATIENT AND SHE DOES NOT FEEL SHE WILL NEED HOME HEALTH AT DISCHARGE AND HER SON IS HELPFUL. CM SPOKE WITH SON WHO STATES HE WILL BE ABLE TO PICK HER UP AT DISCHARGE. PT DOES NOT ANTICIPATE HAVING ANY NEEDS AND DECLINES THE NEED FOR HH. PTS SON FIDEL CAN BE REACHED AT [phone].
[2019-02-26 15:45] VITALS: BP 107/88
[2019-02-26 16:08] LABS: POTASSIUM 3.3 mmol/L (3.5-5.1)
--- NOTE | 2019-02-26 19:20 | NUR ---
MONICA HAD COLONSCOPY THIS AM AND TOLERATED WELL. PLACED BACK ON REGULAR DIET AND SHE DOES HAVE A GOOD APPETITE.PATIENT HAS NOT VOICED PAIN AT THIS TIME. WILL CONT WIHT PLAN OF CARE.
[2019-02-26 19:36] LABS: CALCIUM 9.3 mg/dL (8.5-10.1); CREATININE 0.9 mg/dL (0.6-1.0); POTASSIUM 3.4 mmol/L (3.5-5.1)
[2019-02-26 20:05] VITALS: BP 153/101
[2019-02-26 21:30] VITALS: BP 149/82
[2019-02-27 04:45] VITALS: BP 134/63
--- NOTE | 2019-02-27 05:42 | NUR ---
CONTINUES TO HAVE A HEADACHE TONIGHT AND DIFFICULTY SLEEPING. RECIEVED ORDER FOR MELATONIN AT . SHE IS COOPERATIVE AND FRIENDLY, CALLS OUT FOR ASSIST OUT OF BED. CAREPLAN REVIEWED. PROGRESSING TOWARD DISCHARGE GOALS.
[2019-02-27 07:20] VITALS: BP 145/78
[2019-02-27] MEDS ORDERED: CLARITIN10 MG PO (13:16)
[2019-02-27] MEDS ORDERED: FLAGYL500 M1 PO (13:19)
[2019-02-27 14:03] VITALS: BP 145/78
--- NOTE | 2019-02-27 15:30 | NUR ---
PT ALERT AND ORIENTED TIMES FOUR. VSS, 96%RA, SR ON TELE, IVF INFUSING PER ORDER. PT DENIES PAIN/SOA. PT TOLERATES MEDS AND MEALS. PT UP TO BSC WITH STANDBY ASSSIT. PT WORKED WELL WITH PHYSICAL THERAPY WALKING AROUND THE UNIT. FAMILY AT BEDSIDE. PT PROGRESSING TOWRADS POC GOALS.
--- NOTE | 2019-03-01 17:06 | PATH ---
[facility] [place] [address] PATHOLOGY RPT PROCEDURE Name: RACHJESS RAMIREZS Room #: 358-P DIS IN M.R.#: [id number] ������������������ Admission: 02/25/19 ������������������ Date of : 37 Discharge: 02/27/19 Report #: [id number] Path Case #: [id number] [facility] Accession Number: [id number] . 01 Material submitted: . colon - BX AT TRANSVERSE COLON R/O ISCHEMIC VS INFECTIOUS COLITIS. Modifiers: transverse . 01 Clinical history: . Colitis . 02 Diagnosis: Large intestine mucosa, transverse colon rule out ischemic versus infectious, endoscopic biopsy: - Mild to moderate active colitis present within all fragments sampled, see comment. - Negative for dysplasia or malignancy. 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 02 Comment: Sections of the colonic mucosa designated "transverse colon" show focal cryptitis, and a moderately cellular lamina propria composed predominantly of lymphocytes and plasma cells and occasional eosinophils. Surface ulceration is not identified. There are no crypt abscesses, granulomas or viral inclusions. The process affects all the fragments with a similar intensity. Regenerative surface epithelial atypia, lamina propria fibrosis, as well as fibrin thrombi within lamina propria vessels, features suggestive of ischemic colitis are not identified. Given the description, the differential diagnosis includes active colitis, either of infectious-type etiology, early inflammatory bowel disease, medication/drug-induced colitis, as well as acute diverticulitis. Please correlate with clinical as well as endoscopic findings. 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 02 Electronically signed: . Yuli Sparrow MD, Pathologist NPI- [id number] . 01 Gross description: . Received in formalin labeled "Jess Loyd, BX of transverse colon, rule out ischemic versus infectious colitis," are 6 segments of mera soft tissue measuring 1.3 x 0.9 x 0.2 cm in aggregate dimensions and ranging from 0.2 to 0.3 cm in maximum dimension. The specimen is submitted entirely in cassette A1. (TSD; 02/26/2019) TOB/[place] [address] PATHOLOGY RPT PROCEDURE Name: JESS LOYD Room #: 358-P DIS IN M.R.#: [id number] ������������������ Admission: 02/25/19 ������������������ Date of : 37 Discharge: 02/27/19 Report #: [id number] Path Case #: [id number] . 02 Pathologist provided ICD-10: K52.9, K57.32 . 02 CPT . 716408 Specimen Comment: A courtesy copy of this report has been sent to Specimen Comment: [phone]. Specimen Comment: Report sent to DR HORNE Performed at: [address], [place] [id number] MD Bradford Kaur MD Phone: [phone] Performed at: [address] [id number] MD Yuli Sparrow MD Phone: [phone]
== END 2019-02-27 14:50 | disposition home or self-care (01) | DRG 392 ==
LOC: ER 08:28 → EROBS 12:56 → 3W 12:56
PROVIDERS: Emergency Medicine; Hospitalist; Nurse Practitioner Family; ADMIT Hospitalist
PROC: 0DBL8ZX Excision of Transverse Colon, Via Natural or Artificial Opening Endoscopic, Diagnostic (ICD-10-PCS; principal; 2019-02-26)
PROC: 0DBM8ZX Excision of Descending Colon, Via Natural or Artificial Opening Endoscopic, Diagnostic (ICD-10-PCS; principal; 2019-02-26)
DX: K52.9 Noninfective gastroenteritis and colitis, unspecified (principal); I13.0 Hypertensive heart and chronic kidney disease with heart failure and stage 1 through stage 4 chronic kidney disease, or unspecified chronic kidney disease; I50.9 Heart failure, unspecified; E03.9 Hypothyroidism, unspecified; E78.5 Hyperlipidemia, unspecified; M81.0 Age-related osteoporosis without current pathological fracture; N18.9 Chronic kidney disease, unspecified; K21.9 Gastro-esophageal reflux disease without esophagitis; Z90.710 Acquired absence of both cervix and uterus; Z79.82 Long term (current) use of aspirin; Z79.899 Other long term (current) drug therapy; Z88.0 Allergy status to penicillin; Z88.1 Allergy status to other antibiotic agents; Z88.8 Allergy status to other drugs, medicaments and biological substances
CPT/HCPCS: 10879; 62110; 62900; 70005

== ENCOUNTER 2019-03-08 12:11 | Emergency (ER) | payer OTHER ==
[~2019-03-08] VITALS: Ht 149.9 cm; Wt 83.9 kg
[2019-03-08 12:11] VITALS: BP 123/77
[~2019-03-08 12:11] MED LIST changes: +CLARITIN10 MG PO; +FLAGYL500 M1 PO; +NORCO 7.5-3251 EACH PO
== END 2019-03-08 12:36 | disposition home or self-care (01) ==
LOC: ER 12:11
DX: S60.221A Contusion of right hand, initial encounter (principal); E03.9 Hypothyroidism, unspecified; I10 Essential (primary) hypertension; M81.0 Age-related osteoporosis without current pathological fracture; K21.9 Gastro-esophageal reflux disease without esophagitis; Z90.710 Acquired absence of both cervix and uterus; Z88.1 Allergy status to other antibiotic agents; Z88.8 Allergy status to other drugs, medicaments and biological substances; X58.XXXA Exposure to other specified factors, initial encounter; Y93.89 Activity, other specified; Y92.89 Other specified places as the place of occurrence of the external cause; Y99.8 Other external cause status

== ENCOUNTER 2019-09-16 09:47 | Inpatient (IN) | payer OTHER ==
[~2019-09-16] VITALS: Ht 149.9 cm; Wt 76.7 kg
[2019-09-16 09:48] VITALS: BP 150/85
[2019-09-16 10:08] LABS: ABSOLUTE NEUTROPHILS 9.3 thou/uL (1.4-8.2); BASOPHILS 0.7 % (0.0-2.0); EOSINOPHILS 1.3 % (0.0-3.0); HEMATOCRIT 42.5 % (37.0-47.0); HEMOGLOBIN 14.3 gm/dL (12.0-15.0); LYMPHOCYTES 12.8 % (24.0-44.0); MCH 31.6 pg (26.0-34.0); MCHC 33.5 g/dL (28.0-37.0); MCV 94.3 fL (80.0-100.0); MONOCYTES 6.2 % (1.0-8.0); PLATELET COUNT 290 thou/uL (150-400); RBC 4.51 mil/uL (4.20-5.00); RDW 13.3 % (10.5-14.5); WBC 11.8 thou/uL (4.0-11.0)
[2019-09-16 10:15] LABS: ALBUMIN 3.4 g/dL (3.4-5.0); ANION GAP 7 mmol/L (7-16); BUN 15 mg/dL (7-18); CALCIUM 10.2 mg/dL (8.5-10.1); CHLORIDE 100 mmol/L (98-107); CO2 31 mmol/L (21-32); DIRECT BILIRUBIN < 0.1 mg/dL (<0.1-0.3); GLUCOSE 135 mg/dL (74-106); SGOT 24 U/L (15-37); SGPT 33 U/L (30-65); SODIUM 138 mmol/L (136-145); TOTAL BILIRUBIN 0.3 mg/dL (<0.1-1.0); TOTAL PROTEIN 7.3 g/dL (6.4-8.2)
[2019-09-16 10:18] LABS: POTASSIUM 2.7 mmol/L (3.5-5.1)
[2019-09-16 10:22] LABS: URINE BILIRUBIN NEGATIVE (Negative); URINE BLOOD NEGATIVE (Negative); URINE CLARITY CLEAR; URINE COLOR YELLOW; URINE GLUCOSE-RANDOM* 3+ (Negative); URINE KETONES NEGATIVE (Negative); URINE LEUKOCYTES-REFLEX NEGATIVE (Negative); URINE NITRITE-REFLEX NEGATIVE (Negative); URINE PROTEIN (DIPSTICK) NEGATIVE (Negative); URINE UROBILINOGEN 0.2 E.U./dl (0.2-1.0)
[2019-09-16 12:11] VITALS: BP 157/80
[2019-09-16 12:20] VITALS: BP 135/78
[2019-09-16 14:09] VITALS: BP 137/76
--- NOTE | 2019-09-16 18:35 | NUR ---
ASSUMED CARE OF PT APPROX 1300. PT A&OX4, VSS, DENIES PAIN. PATIENT DENIES N/V/D, ABDOMEN SOFT, ROUND, BOWEL SOUNDS ACTIVE X4. PATIENT TOLERATING CLEAR LIQUIDS. FLUIDS RAN ORDERED. NO SIGNS OF DISTRESS. WILL CONTINUE TO MONITOR.
[2019-09-16 20:20] VITALS: BP 140/73
--- NOTE | 2019-09-17 03:45 | NUR ---
Assessments completed. pt a&0x4. ambulates with standby assist to the bsc. tylenol pm given to help pt sleep but it did take longer to kick in, but pt was able to fall asleep after a while. pt denies pain. no c/o n/v/d. continuing iv abx and ivf. RT had pt on a cpap, but pt c/o that it was uncomfortable, nurse switched pt to 2l nc and pt tolerating it well. v/s stable. no s/s of distress. call gonzalez within reach and pt calls out approp. will cont to monitor
[2019-09-17 03:56] VITALS: BP 139/73
[2019-09-17 04:22] LABS: ALBUMIN 2.8 g/dL (3.4-5.0); CALCIUM 8.9 mg/dL (8.5-10.1); CREATININE 0.8 mg/dL (0.6-1.0); MAGNESIUM 1.8 mg/dL (1.8-2.4); POTASSIUM 3.3 mmol/L (3.5-5.1); TOTAL BILIRUBIN 0.2 mg/dL (<0.1-1.0); TOTAL PROTEIN 6.1 g/dL (6.4-8.2)
[2019-09-17 04:23] LABS: HEMATOCRIT 37.9 % (37.0-47.0); HEMOGLOBIN 12.6 gm/dL (12.0-15.0); MCH 31.6 pg (26.0-34.0); MCHC 33.4 g/dL (28.0-37.0); MCV 94.5 fL (80.0-100.0); RBC 4.01 mil/uL (4.20-5.00); RDW 13.6 % (10.5-14.5); WBC 7.3 thou/uL (4.0-11.0)
[2019-09-17 09:38] VITALS: BP 159/95
[2019-09-17 15:00] VITALS: BP 134/65
--- NOTE | 2019-09-17 18:01 | NUR ---
Assumed pt care this am, vs stable. Stayed on the recliner for half of the day. Was able to work with PT this am and walked the halls with ease and a steady gait using a walker. NO nausea or vomiting has been noted. Pain managed with medication, morphine was used for the first time as per [facility] pt and complete relief was noted. Diet and medication well tolerated, POC followed, no other signs or verbalizations of distress have been noted.
[2019-09-17 20:05] VITALS: BP 130/73
--- NOTE | 2019-09-18 04:25 | NUR ---
ASSUMED CARE AROUND 191. AXOX3. CALLS APPROPIRATELY FOR HELP. PT REPORTED THAT IV MORPHINE MAKES HER HIGH THAT SHE WANTS THE HOME MED NORCO RESTARTED. REPORTED TO 3D MODELER COLOR MIXER FOR AND NOW MORPHINE D/C AND NORCO ORDERED. NO S/S ACUTE DISTRESS NOTED OR REPORTED AT THIS TIME. WILL CONT TO MONITOR FOR ANY CHANGES IN CONDITION.
[2019-09-18 04:51] LABS: HEMOGLOBIN 11.9 gm/dL (12.0-15.0); MCH 31.3 pg (26.0-34.0); MCV 94.9 fL (80.0-100.0); RBC 3.79 mil/uL (4.20-5.00); RDW 13.8 % (10.5-14.5); WBC 7.1 thou/uL (4.0-11.0)
[2019-09-18 08:04] VITALS: BP 147/76
[2019-09-18 15:42] VITALS: BP 133/86
--- NOTE | 2019-09-18 18:31 | NUR ---
A/O, calm and pleasant; patient voiced that she coughed, worrying about risk of getting pnumonia; the staff walked in the [address] with the patient and encouraged the patient to move around more; patient complains of back pain, pain medication given and worked; patient sat on bed side and chair for most of the day, claiming that the sitting positon will reduce the risk of pnumonia; afebrile; lab reviewed. Will keep monitoring.
[2019-09-18 19:47] VITALS: BP 145/88
--- NOTE | 2019-09-19 04:23 | NUR ---
Assessmemts completed. no changes overnight. pt using the bsc for urination and will call for assistance. pt denies pain, n/v/d. v/s stable will cont to monitor
[2019-09-19 06:47] LABS: ALBUMIN 2.9 g/dL (3.4-5.0); CALCIUM 9.3 mg/dL (8.5-10.1); CREATININE 0.8 mg/dL (0.6-1.0); PHOSPHORUS 2.8 mg/dL (2.5-4.9); POTASSIUM 3.3 mmol/L (3.5-5.1)
[2019-09-19 08:02] VITALS: BP 150/87
[2019-09-19 15:22] VITALS: BP 150/69
--- NOTE | 2019-09-19 16:18 | NUR ---
PT A&OX4, VSS, HEAD ACHE AND BACK PAIN IN THE A.M. PATIENT HAD BM TODAY, NO N/V/D, ABDOMEN ROUND AND SOFT. WILL CONTINUE TO MONITOR.
--- NOTE | 2019-09-19 18:38 | NUR ---
THIS VASCULAR ACCESS NURSE WAS NOTIFIED TO EVALUATE THIS PATIENTS LEFT AC. A PERIPHERAL IV WAS REMOVED YESTERDAY AND THE NURSE NOTED DRAINAGE AT THE SITE. DWELL TIME FOR THE PIV WAS 3 DAYS. NO DRAINAGE NOTED AT THE SITE AT THIS TIME. REDDNESS NOTED AND MARKED SO THE SITE CAN BE EVALUATED BY THE MD WHEN HE ROUNDS. THE PATIENT IS AFEBRILE. A NEW PERIPHERAL IV WAS STARTED BY THE NOC NURSE LAST NIGHT AND APPEARS TO BE WNL. THIS PATIENT IS ON 2 NON VESICANT IV ANTIBIOTICS CURRENTLY. THE PATIENT DENIES DISCOMFORT AT THE SITE.
[2019-09-19 19:09] VITALS: BP 139/85
--- NOTE | 2019-09-20 02:50 | NUR ---
ASSUMED CARE AROUND 1914. AXOX4. STB ASSIST. NO S/S ACUTE DISTRESS NOTED OR REPORTED AT THIS TIME. WILL CONT TO MONITOR FOR ANY CHANGES IN CONDITION.
[2019-09-20] MEDS ORDERED: CEFUROXIME250 MG PO (10:58)
[2019-09-20] MEDS ORDERED: FLAGYL500 M1 PO (10:59)
[2019-09-20 11:21] VITALS: BP 165/62
--- NOTE | 2019-09-20 11:59 | NUR ---
PT ADMITTED RELATED TO ABDOMINAL PAIN. CM REVIEWED CHART AND SPOKE WITH CARE TEAM. CM MET WITH PT AT BEDSIDE THIS DAY. PT IS A&O X4. CM ROLE INTRODUCED. PT INDICATED SHE LIVES IN A HOUSE WITH HER SON SASHA WHO HELPS CARE FOR HER. PT INDICATED SHE HAS 4 STEPS TO ENTER AND NONE THAT SHE USES INSIDE. PT INDICATED THAT SHE USES A CANE OUTSIDE OF THE HOUSE AND HAS A FWW FOR US INSIDE IF SHE NEEDS IT. PT INDICATED SHE HAS A CPAP AND O2 THAT SHE USES AT NIGHT TIME. SHE INDICATED SHE COULDN'T RECALL PROVIDER. PT INDICATED SHE HAD [facility] IN THE PAST AND WOULD BE RECEPTIVE TO HAVING THEM AGAIN IF INDICATED UPON DC. PT INDICATED SHE HOPES TO DISCHARGE HOME THIS DAY AND THAT SHE DOESN'T ANTICPATE ANY NEEDS. PT IS TO DISCHARGE HOME THIS DAY WITH NO NEEDS. DON SASHA TO PROVIDE TRANSPORT HOME. NO OTHER CM INTERVENTION INDICATED. CASE CLOSED.
--- NOTE | 2019-09-20 12:22 | NUR ---
Resumed care at 0700. PT was sitting up in recliner eating breakfast with son at bedside. PT is pleasant and A&O x4. PT stated she is ready for discharge and wants to go home as soon as possible. Dr. Joe placed discharge orders and sent prescriptions electronically to her pharmacy. Nurse verified medications were ready for sisal picker. Discharge education was gone over with PT at bedside. She verbalized understanding. IV was removed with cannula intact. Nurse called for wheelchair. PT to leave unit and go home with son.
== END 2019-09-20 12:35 | disposition home or self-care (01) | DRG 392 ==
LOC: ER 09:47 → 4W 11:54 → EROBS 11:54 → 4W 12:20 → ENTRNSPT 09-20 12:16 → EDTRNSPTSTS 09-20 12:30 → 4W 09-20 12:35
PROVIDERS: Emergency Medicine; ADMIT Hospitalist
PROC: 5A09357 Assistance with Respiratory Ventilation, Less than 24 Consecutive Hours, Continuous Positive Airway Pressure (ICD-10-PCS; principal; 2019-09-16)
DX: K52.9 Noninfective gastroenteritis and colitis, unspecified (principal); I10 Essential (primary) hypertension; E03.9 Hypothyroidism, unspecified; E87.6 Hypokalemia; E78.5 Hyperlipidemia, unspecified; K21.9 Gastro-esophageal reflux disease without esophagitis; Z66 Do not resuscitate; M81.0 Age-related osteoporosis without current pathological fracture; Z90.710 Acquired absence of both cervix and uterus; Z88.1 Allergy status to other antibiotic agents; Z88.8 Allergy status to other drugs, medicaments and biological substances; Z79.899 Other long term (current) drug therapy
CPT/HCPCS: 10040

== ENCOUNTER 2020-11-12 10:54 | Emergency (ER) | payer OTHER ==
[~2020-11-12] VITALS: Ht 149.9 cm; Wt 80.7 kg
[~2020-11-12 10:54] MED LIST changes: +CEFUROXIME250 MG PO
[2020-11-12 12:59] VITALS: BP 122/83
== END 2020-11-12 12:59 | disposition home or self-care (01) ==
LOC: ER 10:54
DX: R22.41 Localized swelling, mass and lump, right lower limb (principal); E03.9 Hypothyroidism, unspecified; I10 Essential (primary) hypertension; K21.9 Gastro-esophageal reflux disease without esophagitis; Z88.1 Allergy status to other antibiotic agents; Z88.8 Allergy status to other drugs, medicaments and biological substances; Z79.899 Other long term (current) drug therapy; Z79.82 Long term (current) use of aspirin; Z90.710 Acquired absence of both cervix and uterus; Z90.89 Acquired absence of other organs

== ENCOUNTER 2021-10-02 15:37 | Emergency (ER) | payer OTHER ==
[~2021-10-02] VITALS: Ht 149.9 cm; Wt 79.4 kg
[2021-10-02 15:57] VITALS: BP 136/85
== END 2021-10-02 17:24 | disposition home or self-care (01) ==
LOC: ER 15:37
DX: S61.313A Laceration without foreign body of left middle finger with damage to nail, initial encounter (principal); E03.9 Hypothyroidism, unspecified; I10 Essential (primary) hypertension; K21.9 Gastro-esophageal reflux disease without esophagitis; Z88.8 Allergy status to other drugs, medicaments and biological substances; Z85.841 Personal history of malignant neoplasm of brain; Z88.1 Allergy status to other antibiotic agents; Z88.6 Allergy status to analgesic agent; Z53.21 Procedure and treatment not carried out due to patient leaving prior to being seen by health care provider; W26.0XXA Contact with knife, initial encounter; Y93.89 Activity, other specified; Y92.89 Other specified places as the place of occurrence of the external cause; Y99.8 Other external cause status